=== PATIENT | female | born 1930 | race Caucasian/White ===

== ENCOUNTER 2020-01-19 16:11 | Emergency (ER) | payer OTHER ==
[~2020-01-19] VITALS: Ht 172.7 cm; Wt 68.0 kg
[~2020-01-19 16:11] MED LIST: ALEN70TA2 PO; HYDR-1421; LISIPOW; NAPR500T31 PO; SIMVPOW2; ZOLOFT
[2020-01-19 16:22] VITALS: BP 160/84
[2020-01-19] MEDS ORDERED: KETOROLAC TROMETH 60MG/2ML VIAL IM ONE (19:15)
[2020-01-19] MEDS ORDERED: methylPREDNISolone SOD SUCC 125 MG/2 ML VL IM ONE (19:15)
== END 2020-01-19 19:51 | disposition home or self-care (01) ==
LOC: ER 16:11 → EDBD 16:11 → ER 19:51
DX: S33.5XXA Sprain of ligaments of lumbar spine, initial encounter (principal); M54.42 Lumbago with sciatica, left side; M54.16 Radiculopathy, lumbar region; G89.29 Other chronic pain; I10 Essential (primary) hypertension; E78.5 Hyperlipidemia, unspecified; Z90.49 Acquired absence of other specified parts of digestive tract; Z90.710 Acquired absence of both cervix and uterus; X50.9XXA Other and unspecified overexertion or strenuous movements or postures, initial encounter; Y93.89 Activity, other specified; Y92.89 Other specified places as the place of occurrence of the external cause; Y99.8 Other external cause status
CPT/HCPCS: 96372; 99284; J1885; J2930